=== PATIENT | male | born 1980 | race African-American/Black ===

== ENCOUNTER 2021-07-17 10:47 | Emergency (ER) | payer SELFPAY ==
[~2021-07-17] VITALS: Ht 180.3 cm; Wt 59.0 kg
[2021-07-17 10:52] VITALS: BP 155/65
[2021-07-17] MEDS ORDERED: IBUP-2029 PO (13:20)
== END 2021-07-17 14:49 | disposition home or self-care (01) ==
LOC: ER 10:47
DX: S92.421A Displaced fracture of distal phalanx of right great toe, initial encounter for closed fracture (principal); Z79.899 Other long term (current) drug therapy; X58.XXXA Exposure to other specified factors, initial encounter; Y93.89 Activity, other specified; Y92.89 Other specified places as the place of occurrence of the external cause; Y99.8 Other external cause status
CPT/HCPCS: 73660; 99283

== ENCOUNTER 2021-07-24 13:49 | Emergency (ER) | payer SELFPAY ==
[~2021-07-24] VITALS: Ht 177.8 cm; Wt 61.0 kg
[~2021-07-24 13:49] MED LIST: IBUP-2029 PO
[2021-07-24 14:37] VITALS: BP 137/106
== END 2021-07-24 15:31 | disposition home or self-care (01) ==
LOC: ER 13:49
DX: Z02.79 Encounter for issue of other medical certificate (principal); M79.676 Pain in unspecified toe(s)
CPT/HCPCS: 99281

== ENCOUNTER 2022-10-22 22:54 | Emergency (ER) | payer SELFPAY ==
[~2022-10-22] VITALS: Ht 177.8 cm; Wt 58.4 kg
[2022-10-22 23:30] VITALS: BP 127/76
[2022-10-23] MEDS ORDERED: IBUP-2029 PO (00:06)
== END 2022-10-23 00:33 | disposition home or self-care (01) ==
LOC: ER 22:54
DX: M25.562 Pain in left knee (principal)
CPT/HCPCS: 99282

== ENCOUNTER 2022-11-19 17:01 | Emergency (ER) | payer SELFPAY ==
[~2022-11-19] VITALS: Ht 177.8 cm; Wt 63.6 kg
[2022-11-19] MEDS ORDERED: IBUP-2028 MT (18:05)
[2022-11-19] MEDS ORDERED: IBUPROFEN 400MG TABLET PO ONE (18:15)
[2022-11-19 18:21] VITALS: BP 153/97
== END 2022-11-19 18:25 | disposition home or self-care (01) ==
LOC: ER 17:01
DX: M25.562 Pain in left knee (principal)
CPT/HCPCS: 73562; 99283

== ENCOUNTER 2022-12-10 19:16 | Emergency (ER) | payer SELFPAY ==
[~2022-12-10 19:16] MED LIST changes: +IBUP-2028 MT
== END 2022-12-11 03:37 | disposition home or self-care (01) ==
LOC: ER 19:16
DX: G89.29 Other chronic pain (principal); M25.562 Pain in left knee
CPT/HCPCS: 99281

== ENCOUNTER 2023-05-31 13:05 | Emergency (ER) | payer SELFPAY ==
[~2023-05-31] VITALS: Ht 182.9 cm; Wt 68.0 kg
[2023-05-31 13:13] VITALS: BP 145/96; PULSE 80; RESP 20; TEMP 98.5; O2SAT 99
[2023-05-31] MEDS ORDERED: MAG-55 MT (16:14)
[2023-05-31] MEDS ORDERED: ONDANSETRON 4MG ODT PO ONE (16:15)
[2023-05-31] MEDS ORDERED: MAGNESIUM/ALUMINUM HYDROXIDE/SIMETHICONE 30ML UDC PO ONE (16:15)
== END 2023-05-31 16:24 | disposition home or self-care (01) ==
LOC: ER 13:05
DX: R11.2 Nausea with vomiting, unspecified (principal); R19.7 Diarrhea, unspecified; R11.10 Vomiting, unspecified
CPT/HCPCS: 99283; Q0162

== ENCOUNTER 2023-06-16 17:02 | Emergency (ER) | payer SELFPAY ==
[~2023-06-16] VITALS: Ht 177.8 cm; Wt 64.0 kg
[~2023-06-16 17:02] MED LIST changes: +MAG-55 MT
[2023-06-16 17:23] VITALS: O2SAT 100
[2023-06-16] MEDS ORDERED: FAMO-135 MT (21:08)
[2023-06-16 21:18] VITALS: BP 152/97; PULSE 74; RESP 16; TEMP 98.1
== END 2023-06-16 21:28 | disposition home or self-care (01) ==
LOC: ER 17:02
DX: R11.2 Nausea with vomiting, unspecified (principal); R19.7 Diarrhea, unspecified
CPT/HCPCS: 99282

== ENCOUNTER 2025-04-09 15:24 | Emergency (ER) | payer SELFPAY ==
[~2025-04-09] VITALS: Ht 175.3 cm; Wt 62.0 kg
[~2025-04-09 15:24] MED LIST changes: +FAMO-135 MT; +IBUP-1455 PO; -IBUP-2029 PO
[2025-04-09 15:43] VITALS: O2SAT 97
[2025-04-09] MEDS ORDERED: CARB15DR63 EACH EAR (20:33)
[2025-04-09 20:41] VITALS: BP 151/85; PULSE 79; RESP 18; TEMP 36.8; O2SAT 98
== END 2025-04-09 20:43 | disposition home or self-care (01) ==
LOC: ER 15:24
DX: H61.23 Impacted cerumen, bilateral (principal)
CPT/HCPCS: 99282

== ENCOUNTER 2025-04-28 10:06 | Emergency (ER) | payer SELFPAY ==
[~2025-04-28] VITALS: Ht 175.3 cm; Wt 64.0 kg
[~2025-04-28 10:06] MED LIST changes: +CARB15DR63 EACH EAR
[2025-04-28 10:21] VITALS: O2SAT 100
[2025-04-28] MEDS ORDERED: GABA-529 MT (10:54)
[2025-04-28] MEDS ORDERED: LIDO-53 TP (10:54)
[2025-04-28] MEDS ORDERED: NAPR-1494 MT (10:54)
[2025-04-28] MEDS: KETOROLAC 30MG/ML VIAL IM ONE (11:29)
[2025-04-28] MEDS: LIDOCAINE 5% PATCH TOP SCH (11:34)
[2025-04-28] MEDS: ACETAMINOPHEN 500MG TABLET PO ONE (11:34)
[2025-04-28 11:44] VITALS: BP 152/92; PULSE 78; RESP 18; TEMP 37.1; O2SAT 100
== END 2025-04-28 11:45 | disposition home or self-care (01) ==
LOC: ER 10:06
DX: M54.50 Low back pain, unspecified (principal); I10 Essential (primary) hypertension; Z79.899 Other long term (current) drug therapy
CPT/HCPCS: 99283

== ENCOUNTER 2025-07-15 13:50 | Emergency (ER) | payer BC ==
[~2025-07-15] VITALS: Ht 175.3 cm; Wt 64.0 kg
[~2025-07-15 13:50] MED LIST changes: +GABA-529 MT; +LIDO-53 TP; +NAPR-1494 MT
[2025-07-15 13:56] VITALS: BP 171/97; PULSE 89; RESP 16; TEMP 37.1; O2SAT 98
[2025-07-15 14:00] VITALS: O2SAT 99
== END 2025-07-15 16:34 | disposition home or self-care (01) ==
LOC: ER 13:50
DX: R10.9 Unspecified abdominal pain (principal); Z53.21 Procedure and treatment not carried out due to patient leaving prior to being seen by health care provider
CPT/HCPCS: 99281